=== PATIENT | male | born 1950 | race Caucasian/White ===

== ENCOUNTER 2018-04-28 10:48 | Inpatient (IN) | payer MEDICARE, SELFPAY ==
[2018-04-13 12:55] VITALS: BMI 39.4
[2018-04-28] VITALS (12 sets, daily range): BP systolic 127–141; BP diastolic 66–82; PULSE 75–91; RESP 10–20; TEMP 36.1–36.9; O2SAT 90–98; BMI 39.4
--- NOTE | 2018-04-28 06:00 | DI.RAD.S_ITS ---
PROCEDURE: XR SHOULDER RT 1V INDICATIONS: TOTAL RIGHT SHOULDER POST OPERATIVE TECHNIQUE: A single view of the shoulder was acquired. COMPARISON: [facility], CR, XR SHOULDER MIN 2VW RT, 03/25/2016, 9:17. FINDINGS: Bones: No fractures or dislocations. No suspicious bony lesions. Visualized ribs appear intact. There is expected postsurgical change after right total shoulder arthroplasty with surgical drain overlying the Soft tissues: No suspicious soft tissue calcifications. IMPRESSION: Normal alignment after right total shoulder arthroplasty. Dictated by: Abdirahman Atwood M.D. on 04/28/2018 at 15:09 Approved by: Abdirahman Atwood M.D. on 04/28/2018 at 15:09
[2018-04-28] MEDS: LACTATED RINGERS 1,000 ML 42 ML IV ×2 (11:15→13:34)
--- NOTE | 2018-04-28 11:20 | PM.PREOP ---
Pre-operative Note Interval Note Pre-op Check: Yes History & Physical Reviewed by Physician and Yes Exam Performed Changes: No
[2018-04-28] MEDS: CELECOXIB 200 MG CAPSULE PO (11:25)
[2018-04-28] MEDS: PREGABALIN 75 MG CAPSULE PO (11:25)
[2018-04-28] MEDS: ACETAMINOPHEN 325 MG TABLET 975 MG PO ×3 (11:25→21:48)
[2018-04-28] MEDS: fentaNYL 100 MCG/2 ML INJ 50 MCG IV (11:59)
[2018-04-28] MEDS: MIDAZOLAM 2 MG/2 ML VIAL IV (11:59)
[2018-04-28] MEDS: CEFAZOLIN VIAL 3 GM in SODIUM CHLORIDE 0.9% 100 ML 200 ML IV (12:15)
--- NOTE | 2018-04-28 12:20 | PM.OP.1 ---
Operative Date/Time/Diagnoses Date of procedure: 04/28/18 Time of procedure: 14:15 Pre-op diagnosis: Right shoulder osteoarthritis Post-op diagnosis: same Procedure & Clinicians Procedure: Right total shoulder replacement Same procedure as scheduled: Yes Indications: The patient has had progressively worsening right shoulder pain with radiographic changes consistent with arthritis. Non-operative management has failed and the patient has requested total shoulder replacement. The risks, benefits and alternatives to surgery were discussed with the patient prior to proceeding. Risks discussed included, but were not limited to, failure to relieve pain, stiffness, infection, nerve damage, deep venous thrombosis, pulmonary embolism, stroke, coma, heart attack, permanent paralysis and , as well as the potential need for eventual revision of the prosthetic. Surgeon: Han Urena Jackscrew Worker: Valerie Quinn Click Yes if Unassisted: No Anesthesia Type: General, Peripheral nerve block and Local Operative Notes Findings: Severe osteoarthritis with very large inferior osteophyte on the humerus. There was concentric wear on the glenoid. Closure Type: primary Specimen(s): none sent Implants & Drains: Implants used during this procedure were manufactured by the [employer] and included a short stem Altivate anatomic total shoulder system with a size 14 mm humeral stem, 50 x 18 mm offset humeral head with a neutral humeral neck and a 50 mm all polyethylene pegged E +glenoid. Applied: drain(s) and implant(s) Blood products transfused: none Procedure in detail: The patient was seen in the pre-operative area, where the patient identified the right shoulder as the operative site and this was marked with my initials. The patient received pre-operative antibiotics, underwent an interscalene block, and was taken to the operating room and placed on the operative table in the supine position. After satisfactory anesthesia, a full ?time out? was performed. The patient was repositioned in the ?beach chair? position using a dedicated positioner. All pressure points were well padded, and the knees were slightly bent to prevent tension on the sciatic nerves. The right arm was prepared from the fingers to the base of the neck with ChloroPrep in the usual fashion and draped through sterile drapes. An approximately 15 cm incision was created, starting at the clavicle above the coracoid process and extended towards the deltoid insertion. The deltopectoral interval was used to access the shoulder. The cephalic vein was injured and cauterized. A self retaining retractor was placed. The upper centimeter of the pectoralis major tendon was released. The ?three sisters? were identified and cauterized. The axillary nerve was palpated and protected throughout the case. The biceps was released from its groove and tenodesed over the top of the pectoralis major tendon. The subscapularis was released from the lesser tuberosity with a subscapularis peel and tagged for later repair. The shoulder was dislocated and a cutting guide was used for the proximal humeral osteotomy in 30 degrees of retroversion. A starter reamer was used followed by the cylindrical reamers. This continued in larger sizes in till cortical bite was achieved. Sequential broaching was then performed until a line to line fit with the reamer occurred. A proximal humeral protector was then placed. We then removed the self-retaining retractor and placed retractors to access the glenoid. The subscapularis was released with a ?360 degree release? with care being taken to protect the axillary nerve with the inferior portion of this procedure. The remnant of labrum and biceps stump were removed. The appropriate size reamer was chosen with the glenoid sizer, and the guide pin placed. The glenoid was appropriately reamed. The guide for the peripheral holes was used and the center hole enlarged. The trial glenoid was placed with good stability. We then cemented the final implant into place after irrigating the peg holes and drying them with thrombin-soaked Gelfoam. We returned our attention to the humerus, a trial humeral head was applied and a trial reduction performed. Stability was checked with 50% posterior translation with spontaneous reduction, 45? external rotation at the side with the subscapularis in the repaired position and 70? of internal rotation in the ?scare ?O? position. This was felt to be satisfactory and the appropriate implants were opened. Five holes were drilled along the humeral osteotomy and #2 TiCron sutures placed for eventual subscapularis repair. The humeral prosthetic was impacted into the humerus. The humeral head was applied when the stem was still slightly proud and impacted to both seat the head and fully seat the stem. The joint was relocated one final time. The joint was irrigated and the subscapularis repaired to the previously placed sutures using Porfirio-Bob sutures. The top of the subscapularis was closed to the leading edge of the supraspinatus with a figure of 8 #2 TiCron to close the rotator interval. A deep drain was placed and brought out supero-laterally. The deltopectoral interval was closed with interrupted 0 Vicryl. The subcutaneous layer was closed with 3-0 Vicryl, and the skin with a running 3-0 V-Lock suture and SteriStrips. An Aquacel Ag dressing was applied, the patient?s arm was placed in a sling, and the patient was taken to recovery having tolerated the procedure well. Complications: none Condition: stable Disposition: PACU Plan for aftercare: The patient will be maintained on a standard total shoulder replacement protocol with passive range of motion limited to 90 degrees forward flexion, 0 degrees external rotation at the side, 0 degrees abduction and internal rotation to the body. The patient will receive aspirin and sequential compression devices for DVT prophylaxis. The patient will be discharged home when safe for the home environment, likely tomorrow.
[2018-04-28] MEDS: THROMBIN (BOVINE) 5,000 UNIT VIAL 5000 UNIT TOP (12:56)
[2018-04-28] MEDS: BUPIVACAINE 0.5% W/ EPI (PF) VIAL 30 ML INJ (12:56)
[2018-04-28] MEDS: TRANEXAMIC ACID 1,000 MG VIAL 1000 MG INJ ×2 (12:56→14:07)
--- NOTE | 2018-04-28 13:00 | SUR.OPER ---
Beach chair with Andrew/Calvin shoulder positioner. Lower body on padded OR bed. Head in foam padded head cradle, secured with straps. Non-operative arm secured <90 degrees abduction. Pillow under knees. Safety belt at thigh. Cloth tape over blanket over lower legs.
[2018-04-28] MEDS: LACTATED RINGERS 1,000 ML 125 ML IV (16:29)
--- NOTE | 2018-04-28 17:41 | PT.IIE ---
Current Diagnoses Primary osteoarthritis, right shoulder (04/28/18) Surgery Performed Operation Date: 04/28/18 12:45 Actual Procedures p Total Shoulder Arthroplasty(Right) - Han Urena MD Surgical History (Last Updated 04/13/18 @ 13:39 by Cassandra Pires, RN) H/O vasectomy (Acute) History of arthroplasty of right knee (Acute) History of arthroscopy of both knees (Acute) Medical History (Last Updated 04/13/18 @ 13:39 by Cassandra Pires RN) Bilateral pulmonary embolism (Acute) HTN (hypertension) (Acute) Hyperlipidemia (Acute) Pneumonia (Acute) Psoriasis (Acute) Physical Therapy Inpatient Evaluation/Re-Eval M1 PT/OT-IP Prior Functional Status Start: 04/28/18 17:17 Freq: NEEDED Status: Active Protocol: Document 04/28/18 17:17 EA (Rec: 04/28/18 17:39 EA [id number]) Medical Review Prior Functional Status Medical History Reviewed Yes Diet/Fluid Consistency Regular Communication Normal Mobility and Gait Can ambulate with unlimited distance with no AD independently. No fall in the past six months Activities of Daily Living and IADL's Indep Prior Functional Level (Other details) Independent Social History Household Members significant other Living Arrangements House Number of Floors (Floors) Two Floors Number of Stairs To Enter/Railing? 4 steps to get in to the main floor and > 10 steps to get in to the second floor. Patient will stay on the main floor using the recliner. Home Environment Standard Height Toilet Home Equipment Straight Cane Additional Social History Comment Walks regularly M2 PT-IP Current Condition Start: 04/28/18 17:17 Freq: NEEDED Status: Active Protocol: Document 04/28/18 17:17 EA (Rec: 04/28/18 17:39 EA [id number]) Physical Therapy Current Condition Current Condition Evaluation Date 04/28/18 Treatment Diagnosis s/p right TSA Onset Date 04/28/18 Precautions Abdominal Surgery Precautions Lifting Restrictions Shoulder Precautions Sling PROM Internal Rotation to Body No External Rotation No Abduction Forward Flexion to 90 degrees Pendulums Other Precautions No sleeping toward right shoulder M3 PT-IP Subjective Start: 04/28/18 17:17 Freq: NEEDED Status: Active Protocol: Document 04/28/18 17:17 EA (Rec: 10/16/18 17:39 EA [id number]) Subjective Physical Therapy Visit Type Type Initial Evaluation Visit Start Time 16:45 Visit Stop Time 17:15 Total Visit Minutes 30 Physical Therapy Visit Comments Patient Comments Patient agreeable to mobilize and ue the BR. Patient Goals Patient wants to be indep in all transfers and mobility prior to discharge. Pt wants to be indep climbing to 4 steps of stair using right hand rail for support prior Therapy Pain Assessment Pain When Pain Assessed At Rest Pain Present Pain Present Denied Pain M4 PT-IP Mobility and Gait Start: 04/28/18 17:17 Freq: NEEDED Status: Active Protocol: Document 04/28/18 17:17 EA (Rec: 04/28/18 17:39 EA [id number]) PT-Bed Mobility Assessment Rolling Type of Rolling Roll to Left Level of Assist Standby Assistance Supine to Sit Supine to Sit Standby Assistance Sit to Supine Sit to Supine Standby Assistance Scooting Scooting to Edge of Bed Standby Assistance Scooting Up and Down in Bed Standby Assistance PT-Transfer Assessment Sit to and From Stand Sit to and from Stand Standby Assistance Equipment Transfer Assistive Device Bed Rail Gait Belt Transfers Transfer Destination Bed Toilet Transfer Technique stepping Transfer Ability Level of Assist Contact Guard Assistance Comments Mobility Comments No signs of instability noted but patient frequent rest due to dizziness. Pt uses IV pole to left hand for support. Gait Assessment Gait Gait Assistance Required: Contact Guard Assist Distance (Feet) 20 Able to Maintain Weight Bearing Status Yes During Gait Assistive Devices Assistive Device Gait Belt Gait Deviations General Gait Pattern Within Normal Limits Comments Gait Comments Patient ambulates with IV pole to left w/ normal rafael, however decreased distance tolerance due to dizziness and general body fatigue PT-Balance Assessment Sitting Balance and Reactions Static Sitting Balance Ability Normal Standing Balance and Reactions Static Standing Balance Ability Normal Dynamic Standing Balance Ability Good M5 PT-IP Objective Assessments Start: 04/28/18 17:17 Freq: NEEDED Status: Active Protocol: Document 04/28/18 17:17 EA (Rec: 04/28/18 17:39 EA [id number]) Orientation Orientation/Cognition Level of Alertness Alert Orientation Name Month Date Year Day of Week Place Situation Language Function Ability No Deficits Noted Safety Awareness Understands Safety Issues Memory Description No Deficits Noted Gross Range of Motion Upper Extremity ROM Assessment Right Impaired Impairments N/A due to shoulder pre- cautions Lower Extremity ROM Assessment Within Functional Limits Strength Upper Extremity Strength Assessment Right Impaired Shoulder N/A due to shoulder pre- cautions Elbow 2/5 Wrist 2/5 Hand 2-/5 Lower Extremity Strength Assessment Within Functional Limits Comments Strength Comments Strength to right UE maybe due to nerve block which appropriately evaluated after few more hours. Coordination Assessment Gross Coordination Gross Coordination Impaired Assessment Coordination Comments Impaired sensory to right UE Sensation Assessment Sensation Gross Sensation Right UE Impaired Sensation Description Paresthesia Numbness Pins & [place] Heaviness Comments Sensation Comments Sensory to RU is incomplete at this time. M6 PT-IP Treatment Start: 04/28/18 17:17 Freq: NEEDED Status: Active Protocol: Document 04/28/18 17:17 EA (Rec: 04/28/18 17:39 EA [id number]) Physical Therapy Treatment Education Education Provided Precautions Post-Op Packet Safety M7 PT-IP Assessment and Plan Start: 04/28/18 17:17 Freq: NEEDED Status: Active Protocol: Document 04/28/18 17:17 EA (Rec: 04/28/18 17:39 EA [id number]) PT Summary Assessment and Plan Potential Rehabilitation Potential Good Status of Condition at Evaluation Stable Summary Impairments Pain ROM Strength Bed Mobility Transfers Gait Activity Tolerance Assessment Summary Patient exhibits good dynamic standing tolerance and strength to LUE and BLE. However, decreased activity tolerance noted with slight dizziness with stable VS during functional transfers and mobility. Patient would benefit with skilled PT to practice stairs and distance amb prior to discharge tomorrow. Patient demonstrates high rehab potential. Goals Bed Mobility Goal Independent Transfer Goal Independent Gait Goal Independent Gait Distance 100 ft Other Goals Independent in 4 steps of stairs using right HR. Proficient to shoulder HEP ( pendulum) Days to Meet Goals 1 Frequency of Treatment Frequency Of Treatment Once a Day Treatment Plan Physical Therapy Treatment Plan Bed Mobility Training Transfer Training Gait Training Post Op Education Discharge Planning Hot or Cold Pack Recommendations To Nursing Amount of Assist Needed 1 Person Assist
--- NOTE | 2018-04-28 21:33 | PC.ADMIT ---
Admission Note: Pt arrived to floor at 1500. Pt in room. pt given call light. water and ice chips and tolerated well. then wanted coffee. Ate cheese stick. given meds. ate dinner. no N/V Pt able to wiggle pointer finger a bit and thumb, but cannot feel at this time. denies pain. oriented to room and hospital procedures. 1700- Pt still very numb. still able to wiggle fingers just a bit, but barely. Pt has arm in sling. propped on pillow for comfort. on RA. Pt saw pt and pt did well walking. can use IV pole to help with ambulation. 1900- Pt states his arm feels tingling. Pt states that he can feel pressure, and cold from ice pack, but not delineate sharp from dull touch. Pt uses call light. pleasant and cooperative. bed alarm on, side rail upx3. belongings and call light within reach pt states he may want to refuse SCDs for the night time as he doesn't believe he will be able to sleep otherwise.
[2018-04-28] MEDS: DOCUSATE 100 MG CAPSULE PO (21:48)
[2018-04-28] MEDS: ASPIRIN EC 81 MG TABLET PO (21:49)
[2018-04-28] MEDS: CEFAZOLIN 2 GM/100 ML FROZ.PIGGY IV (21:51)
[2018-04-29 00:29] VITALS: BP 139/78; PULSE 89; RESP 20; TEMP 36.8; O2SAT 92
[2018-04-29] MEDS: LACTATED RINGERS 1,000 ML 125 ML IV (02:00)
[2018-04-29 04:44] VITALS: BP 138/73; PULSE 73; RESP 18; TEMP 36.6; O2SAT 94
[2018-04-29] MEDS: CEFAZOLIN 2 GM/100 ML FROZ.PIGGY IV (05:43)
[2018-04-29 07:27] LABS: Hematocrit 39.1 % (41-53); Hemoglobin 13.2 g/dL (13.5-17.5); Mean Corpuscular HGB Conc 33.8 % (30-36); Mean Corpuscular Hemoglobin 30.9 PG (26-34); Mean Corpuscular Volume 91.5 fL (80-100); Platelet Count 250 X10^3/uL (150-400); Red Blood Cell Count 4.27 X10^6/uL (4.5-5.9); Red Cell Distribution Width 13.7 % (11.6-14.8); White Blood Cell Count 12.7 X10^3/uL (4.5-11.0)
[2018-04-29 07:40] VITALS: BP 143/81; PULSE 82; RESP 16; TEMP 36.6; O2SAT 93
--- NOTE | 2018-04-29 07:53 | P.DS_ITS ---
History of Present Illness Date Patient Seen: 04/29/18 Time Patient Seen: 07:35 Chief complaint: 23356 RIGHT TOTAL SHOULDER ARTHROPLASTY Narrative: History and physical exam are contained in the chart previously completed note. Please refer to that note for this information. Discharge Providers Date of admission: 04/28/18 10:48 Primary care physician: Alex Bedolla MD Consults: 04/28/18 15:57 Consult to Discharge Planning Routine Comment: Consult to Occupational Therapy Evaluate & Treat Comment: Physician Instructions: Evaluate and treat Consult to Physical Therapy Evaluate & Treat Comment: Pendulums, 90 FF, 0 ER, 0 Abd, IR to body Physician Instructions: Evaluate and Treat Consult to Respiratory Therapy Evaluate & Treat Comment: Physician Instructions: Evaluate and treat Discharge provider: Han Urena MD Discharge Date: 04/29/18 Summary Discharge Diagnosis: 1. Right shoulder osteoarthritis Hospital Course: The patient was admitted to the hospital and taken directly to the operating room on April 28, 2018 where he underwent a right total shoulder replacement. He tolerated this procedure well and was pain free on postoperative day 1 although his interscalene block had not fully resolved. He was felt to be stable for discharge home on postoperative day 1. Status at Discharge Cognitive/behavioral status at discharge: At baseline. Functional status at discharge: independent ambulation Overall status at discharge: patient is progressing back to baseline Time Spent with Patient Less than 30 minutes Exam Vital Signs (past 8 hours): - 04/29/18 00:29 04/29/18 04:44 Temperature 98.3 F 97.8 F Pulse Rate 89 73 Respiratory Rate 20 18 Blood Pressure 139/78 138/73 Pulse Oximetry 92 94 Oxygen Delivery Method Nasal Cannula Oxygen Flow Rate 1 Narrative Exam Narrative: On physical examination of the right shoulder the wound is dressed with no drainage on the bandage. Light touch is intact in the axillary , muscular cutaneous, radial, ulnar and median nerve distributions. He can only weakly extend his thumb and abduct his thumb indicating that the motor portion of his block is still in place. Objective Labs Result Diagrams: 04/29/18 06:47 Labs: Laboratory Results - last 24 hr 04/29/18 06:47 WBC 12.7 H RBC 4.27 L Hgb 13.2 L Hct 39.1 L MCV 91.5 MCH 30.9 MCHC 33.8 RDW 13.7 Plt Count 250 Radiographs reveal an appropriately positioned right short stem total shoulder replacement. Discharge Plan Discharge Plan Patient Disposition: Home Discharge Med Rec/Prescriptions Prescriptions: New acetaminophen 325 mg Tablet 975 mg PO TID 14 Days Qty: 126 RF: 0 aspirin 81 mg Tablet,Delayed Release (Dr/Ec) 81 mg PO BID 14 Days Qty: 28 RF: 0 oxycodone 5 mg Tablet 5 mg PO Q3HR PRN (Reason: Pain, Moderate (4-6)) Qty: 40 RF: 0 Continue atorvastatin [Lipitor] 10 MG tablet 10 mg PO QAM Qty: 0 RF: 0 multivitamin [Multiple Vitamins] 1 EACH tablet 1 tab PO QDAY Qty: 0 RF: 0 cholecalciferol (vitamin D3) [Vitamin D3] 1,000 UNIT tablet 1,000 unit PO QDAY Qty: 0 RF: 0 losartan-hydrochlorothiazide 100-12.5 mg Tablet 1 tab PO DAILY RF: 0 Discontinued aspirin 81 MG tablet,delayed release (DR/EC) 81 mg PO DAILY RF: 0 Provider Discharge Instructions Diet: Diet as Tolerated and Regular Activity: You may use your hand in front of your torso below shoulder level. Continue the sling until told to discontinue in physical therapy. You may do pendulum exercises. Cold/Heat Therapy: Apply ice to the right shoulder for 15 min every hour as needed. Skin/Wound/Dressing Care Report to your healthcare provider any signs of infection, such as:: chills, fever, night sweats, increased pain and unusual drainage Dressing: Leave the dressing intact until follow-up. You may shower with the dressing in place. If the central strip of the dressing becomes saturated with either water or blood please call the office to arrange to have it changed. Discharge Data Primary Care Provider: Alex Bedolla Attending Provider: Han Urena Admit Date/Time: 04/28/18 10:48
[2018-04-29] MEDS: ACETAMINOPHEN 325 MG TABLET 975 MG PO (08:19)
[2018-04-29] MEDS: hydroCHLOROthiazide 12.5 MG CAPSULE PO (08:20)
[2018-04-29] MEDS: DOCUSATE 100 MG CAPSULE PO (08:20)
[2018-04-29] MEDS: ASPIRIN EC 81 MG TABLET PO (08:20)
[2018-04-29] MEDS: LOSARTAN 50 MG TABLET 100 MG PO (08:21)
--- NOTE | 2018-04-29 09:30 | PT.IPTN ---
Current Diagnoses Primary osteoarthritis, right shoulder (04/28/18) Surgery Performed Operation Date: 04/28/18 12:45 Actual Procedures p Total Shoulder Arthroplasty(Right) - Han Urena MD Physical Therapy Treatment Note M2 PT-IP Current Condition Start: 04/28/18 17:17 Freq: NEEDED Status: Active Protocol: Document 04/28/18 17:17 EA (Rec: 04/28/18 17:39 EA [id number]) Physical Therapy Current Condition Current Condition Evaluation Date 04/28/18 Treatment Diagnosis s/p right TSA Onset Date 04/28/18 Precautions Abdominal Surgery Precautions Lifting Restrictions Shoulder Precautions Sling PROM Internal Rotation to Body No External Rotation No Abduction Forward Flexion to 90 degrees Pendulums Other Precautions No sleeping toward right shoulder M3 PT-IP Subjective Start: 04/28/18 17:17 Freq: NEEDED Status: Active Protocol: Document 04/29/18 09:30 GGD (Rec: 04/29/18 10:55 GGD [id number]) Subjective Physical Therapy Visit Type Type Treatment Note Visit Start Time 09:10 Visit Stop Time 09:30 Total Visit Minutes 20 Number of VACUUM KETTLE COOK Visits 1 Physical Therapy Visit Comments Patient Comments Pt states he hopes to go home. Therapy Pain Assessment Pain When Pain Assessed At Rest Pain Present Pain Present Denied Pain M4 PT-IP Mobility and Gait Start: 04/28/18 17:17 Freq: NEEDED Status: Active Protocol: Document 04/29/18 09:30 GGD (Rec: 04/29/18 10:55 GGD [id number]) PT-Bed Mobility Assessment Supine to Sit Supine to Sit Standby Assistance Sit to Supine Sit to Supine Standby Assistance Scooting Scooting to Edge of Bed Standby Assistance Scooting Up and Down in Bed Standby Assistance PT-Transfer Assessment Sit to and From Stand Sit to and from Stand Standby Assistance Equipment Transfer Assistive Device Gait Belt Transfers Transfer Destination Bed Transfer Technique stepping Transfer Ability Level of Assist Contact Guard Assistance Gait Assessment Gait Gait Assistance Required: Standby Assistance Distance (Feet) 125 Able to Maintain Weight Bearing Status Yes During Gait Assistive Devices Assistive Device Gait Belt Orthotic/Prosthetic Devices or Brace: No Gait Deviations General Gait Pattern Within Normal Limits Stair Climbing Assessment Evaluation Level of Assist On Stairs Contact Guard Assistance Devices Stair Climbing Assistive Devices None Left Railing Right Railing Technique/Endurance Stair Climbing Direction Ascend and Descend Stair Climbing Technique Step to Step Number of Steps Climbed 3 Query Text: Stair Climbing Set # Repetitions (reps) 2 Comments Stair Climbing Comments one set of stairs with left rail to asscend and right rail to descend. one set with wall touch to ascend and right rail to descend M5 PT-IP Objective Assessments Start: 04/28/18 17:17 Freq: NEEDED Status: Active Protocol: Document 04/28/18 17:17 EA (Rec: 04/28/18 17:39 EA [id number]) Orientation Orientation/Cognition Level of Alertness Alert Orientation Name Month Date Year Day of Week Place Situation Language Function Ability No Deficits Noted Safety Awareness Understands Safety Issues Memory Description No Deficits Noted Gross Range of Motion Upper Extremity ROM Assessment Right Impaired Impairments N/A due to shoulder pre- cautions Lower Extremity ROM Assessment Within Functional Limits Strength Upper Extremity Strength Assessment Right Impaired Shoulder N/A due to shoulder pre- cautions Elbow 2/5 Wrist 2/5 Hand 2-/5 Lower Extremity Strength Assessment Within Functional Limits Comments Strength Comments Strength to right UE maybe due to nerve block which appropriately evaluated after few more hours. Coordination Assessment Gross Coordination Gross Coordination Impaired Assessment Coordination Comments Impaired sensory to right UE Sensation Assessment Sensation Gross Sensation Right UE Impaired Sensation Description Paresthesia Numbness [place] Heaviness Comments Sensation Comments Sensory to RU is incomplete at this time. M6 PT-IP Treatment Start: 04/28/18 17:17 Freq: NEEDED Status: Active Protocol: Document 04/28/18 17:17 EA (Rec: 04/28/18 17:39 EA [id number]) Physical Therapy Treatment Education Education Provided Precautions Post-Op Packet Safety M7 PT-IP Assessment and Plan Start: 04/28/18 17:17 Freq: NEEDED Status: Active Protocol: Document 04/29/18 09:30 GGD (Rec: 04/29/18 10:55 GGD [id number]) PT Summary Assessment and Plan Summary Assessment Summary Pt was safe and stable with all mobility. He had no unsteadiness or LOB. He was safe with stairs and gait. He safe to D/C home when medically stable. Frequency of Treatment Frequency Of Treatment Once a Day Recommendations To Nursing Amount of Assist Needed Standby Assistance
--- NOTE | 2018-04-29 10:14 | OT.IP.EVAL ---
Current Diagnoses Primary osteoarthritis, right shoulder (04/28/18) Surgery Performed Operation Date: 04/28/18 12:45 Actual Procedures p Total Shoulder Arthroplasty(Right) - Han Urena MD Past Medical History (Last Updated 04/13/18 @ 13:39 by Cassandra Pires, RN) Bilateral pulmonary embolism (Acute) HTN (hypertension) (Acute) Hyperlipidemia (Acute) Pneumonia (Acute) Psoriasis (Acute) Surgical History (Last Updated 04/13/18 @ 13:39 by Cassandra Pires RN) H/O vasectomy (Acute) History of arthroplasty of right knee (Acute) History of arthroscopy of both knees (Acute) Occupational Therapy Inpatient Evaluation/Re-Eval M1 PT/OT-IP Prior Functional Status Start: 04/29/18 12:57 Freq: NEEDED Status: Active Protocol: Document 04/29/18 10:14 PJGunnar (Rec: 04/29/18 13:13 PJM [id number]) Medical Review Prior Functional Status Medical History Reviewed Yes Diet/Fluid Consistency Regular Communication Normal Mobility and Gait Can ambulate with unlimited distance with no AD independently. No fall in the past six months Activities of Daily Living and IADL's Indep with all self care, IADLs, driving. 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 He travels frequently for work and is active walking in [place]. His S.O. 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 Social History Household Members significant other Living Arrangements House Number of Floors (Floors) Two Floors Number of Stairs To Enter/Railing? 4 steps to get in to the main floor with B rails and > 10 steps to get in to the second floor. There is a right rail half way when ascending and L rail for all stairs ascending. Patient will stay on the main floor using the recliner. Home Environment Standard Height Toilet Walk in Shower Home Equipment Straight Cane Employment Status Self-Employed Additional Social History Comment supportive can provide 24 hr assist at d d/c PRN M2 OT-IP Current Condition Start: 04/29/18 12:57 Freq: Status: Active Protocol: Document 04/29/18 10:14 PJGunnar (Rec: 04/29/18 13:13 MARIAA [id number]) Occupational Therapy Current Condition Current Condition Evaluation Date 10/17/18 Treatment Diagnosis decreased self care s/p R TSA Post Operative Precautions Abdominal Surgery Precautions Lifting Restrictions Shoulder Precautions Sling PROM Internal Rotation to Body No External Rotation No Abduction Forward Flexion to 90 degrees Pendulums Other Precautions NWB RUE Weight Bearing Status Weight Bearing Status Non-Weight Bearing M3 OT- IP Subjective and Pain Start: 04/29/18 12:57 Freq: Status: Active Protocol: Document 04/29/18 10:14 PJM (Rec: 04/29/18 13:13 PJ [id number]) OT- Subjective Occupational Therapy Visit Type Type Initial Evaluation Visit Start Time 09:25 Visit Stop Time 10:14 Total Visit Minutes 49 Notes Pt's s.o. here for education this session. 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 with travel when MD permits OT Pain Assessment Pain When Pain Assessed After Treatment Pain Present Pain Present Pain Reported Location Right Shoulder Intensity 2 Scale Used Numeric (1 - 10) Description Aching Acute Pain Behaviors Facial Grimacing Management Techniques Apply Cold Distraction Re-positioning Timing of Activity with Medications M4 OT- IP ADL's Start: 04/29/18 12:57 Freq: Status: Active Protocol: Document 04/29/18 10:14 PJM (Rec: 04/29/18 13:13 PJ [id number]) OT XPR-Lict-Jbrdhtv General Evaluation Self-Feeding Ability Independent Comments OT Self-Feeding Comments after meal tray set up; will assist PRN at home OT ADL-Grooming General Evaluation Grooming Ability Independent Comments OT Grooming Comments after education re: unilateral techniques and use of R hand within sling for holding light objects OT ADL-Oral Care General Eval Oral Care Ability Independent OT ADL-Dressing General Eval Upper Body Dressing Ability Moderate Assistance Areas Needing Assistance Button-Up Shirt/Blouse Underpants/Brief Pants/Shorts Socks Shoes Comments OT Dressing Comments Provided education re: sequence, technique and shoulder precautions for dressing and sling donning/ doffing. able to assist pt appropriately. OT ADL-Toileting General Evaluation Toileting Ability Independent Comments OT Toileting Comments pt declines need for toilet paper aid; has been practicing with L hand OT ADL-Bathing Bathing Type Bathing Type Shower General Evaluation Bathing Ability Minimal Assistance Comments OT Bathing Comments educated pt/ re; precautions and will assist pt PRN at home; pt declines shower seat M5 OT- IP IADL's Start: 04/29/18 12:57 Freq: Status: Active Protocol: Document 04/29/18 10:14 PJGunnar (Rec: 04/29/18 13:13 PJ [id number]) OT-Instrumental Activities of Daily Living Deficits IADL Deficits Identified Deficits Home Safety Awareness Awareness of Need for Assistance at Home Good Awareness Ability to Problem Solve Emergency Able to Problem Solve Situations Medication Management Medication Management No Deficits Identified Money Management Money Management No Deficits Identified Meal Preparation Meal Preparation Caregiver Provides Assist Float Nurse Float Nurse Caregiver Provides Assist Driving Driving Caregiver Provides Assist Driving Comments to assist until pt able M6 OT- IP Functional Cognition Start: 04/29/18 12:57 Freq: Status: Active Protocol: Document 04/29/18 10:14 PJGunnar (Rec: 04/29/18 13:13 [facility] [id number]) Cognitive Factors Limiting Selfcare Function Cognitive Ability Level of Alertness Alert Patient Orientation Name Age Birthday Month Date Year Day of Week Place Situation Attention Span Ability Capable of Focused Attention Capable of Sustained Attention Ability to Follow Commands Able to Follow One Step Commands Able to Follow Multi-Step Commands Memory Description No Deficits Noted Safety Awareness No Deficits Noted Problem Solving Ability No deficits Noted Executive Function Ability No Deficits Noted Abstract Thinking Ability No Deficits Noted OT- Vision and Hearing OT- Hearing Assessment OT- Hearing Assessment WFL OT- Vision Assessment Visual Acuity Glasses All The Time Vision Assessment Comments pt denies any recent vision changes M7 OT- IP Mobility and Balance Start: 04/29/18 12:57 Freq: Status: Active Protocol: Document 04/29/18 10:14 MARIAA (Rec: 04/29/18 13:13 [facility] [id number]) OT-Transfer Assessment Sit to and From Stand Sit to and from Stand Independent Transfers Transfer Ability Independent Technique Transfer Destination Bed Chair Transfer Technique Stand Step Pivot Devices Transfer Assistive Devices None Comments Mobility Comments pt up in room ad nicky; he plans to sleep in recliner initially OT- Gait Assessment Gait Gait Assistance Required: Independent Assistive Devices Assistive Device None OT- Balance Assessment Sitting Balance and Reactions Static Sitting Balance Ability Good Dynamic Sitting Balance Ability Good Standing Balance and Reactions Static Standing Balance Ability Good Dynamic Standing Balance Ability Good M8 OT- IP Objective Assessments Start: 04/29/18 12:57 Freq: Status: Active Protocol: Document 04/29/18 10:14 PJ (Rec: 04/29/18 13:13 PJ [id number]) OT Gross Range of Motion Upper Extremity Range of Motion Assessment Right Impaired ROM Impairments RUE; pendulums to 80 degrees; elbow, forearm AROM WFL, wrist , finger AAROM WFL (pt still has motor block in effect in radial nerve distribution) LUE AROM WFL throughout OT Strength Upper Extremity Strength Assessment Right 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 LUE WFL throughout OT- Coordination Assessment Comments Coordination Comments RUE impaired by sling use and radial nerve weakness, LUE WFL OT-Muscle Tone Assessment Muscle Tone WNL Yes OT Sensation Assessment Comments Summary Comments Pt reports RUE sensation now WNL except for slight decrease in dorsum of hand Edema Edema Present Edema Comments slight R hand edema noted M9 OT- IP Assessment and Plan Start: 04/29/18 12:57 Freq: Status: Active Protocol: Document 04/29/18 10:14 PJ (Rec: 04/29/18 13:13 PJ [id number]) OT Summary Assessment and Plan Potential Rehabilitation Potential Excellent Analytic Complexity at Evaluation Low Summary OT Impairments Pain Strength Progress Towards Goals Safe For Discharge Goals Met Assessment Summary Low complexity OT assessment and all OT education completed with pt/ re: R shoulder precautions, sling use, adapted techniques for all self care skills as noted above. Pt/ verbalize and demonstrate understanding and pt to d/c home with 24 hr assist from today. Frequency of Treatment Frequency Of Treatment Discharge Discharge Recommendations OT Discharge Recommendations Home with 24/ Assist Home Equipment Needs none
[2018-04-29] MEDS: OXYCODONE IR 5 MG TABLET PO (10:19)
--- NOTE | 2018-04-29 10:59 | PC.NURSE ---
Discharge Note: Pt dressed, belongings with him with , medications given for pain, discussed D/C meds and schedule, to follow all precautions and to hydrate. Pt out via wheelchair to POV with and RACING DRIVER.
--- NOTE | 2018-04-29 15:50 | CM.IDA ---
No barriers indicated in multi-disciplinary rounds this morning to pt's safe DC home when medically stable. DC home today, no concerns noted. JW
== END 2018-04-29 10:20 | disposition home or self-care (01) | DRG 483 ==
PROVIDERS: Admitting Provider Orthopaedic Surgery; PCP Family Medicine; Visit Provider Orthopaedic Surgery
PROC: 0RQJ0ZZ Repair Right Shoulder Joint, Open Approach (ICD-10-PCS; CPT 23472; principal; 2018-04-28 12:45)
DX: M19.011 Primary osteoarthritis, right shoulder (principal); I10 Essential (primary) hypertension; E66.9 Obesity, unspecified; E78.5 Hyperlipidemia, unspecified; F32.9 Major depressive disorder, single episode, unspecified; Z87.891 Personal history of nicotine dependence; Z68.39 Body mass index [BMI] 39.0-39.9, adult; M25.711 Osteophyte, right shoulder
CPT/HCPCS: 36415; 64415; 73020; 85027; 97116; 97161; 97165; 97530; 97535; C1776; J0330; J0690; J1100; J2250; J2405; J2704; J3010

== ENCOUNTER → 2021-05-31 09:52 | Outpatient (CLI) | payer MEDICARE, SELFPAY ==
[2018-04-28 11:18] VITALS: BMI 39.4
[2021-05-31 11:04] LABS: Add Manual Diff / Slide Review NO; Basophils Absolute Auto 0 /uL (0-100); Basophils Percent Auto 0.4 % (0-2); Eosinophils Absolute Auto 200 /uL (0-450); Eosinophils Percent Auto 2.6 % (2-4); Hematocrit 47.8 % (41-53); Hemoglobin 16.2 g/dL (13.5-17.5); Lymphocytes Absolute Auto 2200 /uL (1100-4500); Lymphocytes Percent Auto 28.6 % (25-40); Mean Corpuscular HGB Conc 33.9 % (30-36); Mean Corpuscular Hemoglobin 31.3 PG (26-34); Mean Corpuscular Volume 92.2 fL (80-100); Monocytes Absolute Auto 800 /uL (0-900); Monocytes Percent Auto 10.2 % (3-14); Neutrophils Absolute Auto 4600 /uL (1500-7000); Neutrophils Percent Auto 58.2 % (50-75); Platelet Count 262 X10^3/uL (150-400); Red Blood Cell Count 5.19 X10^6/uL (4.5-5.9); White Blood Cell Count 7.9 X10^3/uL (4.5-11.0)
[2021-05-31 13:08] LABS: BUN Creatinine Ratio 20.2 (6-22); Blood Urea Nitrogen 18 mg/dL (9-20); Calcium 10.1 mg/dL (8.4-10.2); Carbon Dioxide 26 mmol/L (22-32); Chloride 103 mmol/L (98-107); Estimated Glomerular Filt Rate > 60.0 mL/min (>60); Glucose 70 mg/dL (80-110); HEMOLYSIS 16 (0-50); Potassium 4.4 mmol/L (3.4-5.1); Sodium 140 mmol/L (137-145)
== END ==
PROVIDERS: PCP Family Medicine; Referring Provider Orthopaedic Surgery; Visit Provider Orthopaedic Surgery
DX: Z01.818 Encounter for other preprocedural examination (principal); Z01.812 Encounter for preprocedural laboratory examination
CPT/HCPCS: 36415; 80048; 85025; 93005

== ENCOUNTER → 2021-06-22 11:28 | Outpatient (CLI) | payer MEDICARE, SELFPAY ==
[2018-04-28 11:18] VITALS: BMI 39.4
[2021-06-22 12:41] LABS: COVID19 -Nasal RAPID Negative (Negative)
== END ==
PROVIDERS: PCP Family Medicine; Visit Provider Physician Assistant
DX: Z20.822 Contact with and (suspected) exposure to COVID-19 (principal)
CPT/HCPCS: 87635; C9803

== ENCOUNTER 2021-06-25 12:39 | Day surgery (SDC) | payer MEDICARE, SELFPAY ==
[2018-04-28 11:18] VITALS: BMI 39.4
[2021-06-18 13:54] VITALS: BMI 38.5
[2021-06-25] VITALS (12 sets, daily range): BP systolic 122–156; BP diastolic 43–78; PULSE 64–89; RESP 10–16; TEMP 36.3–36.7; O2SAT 92–97; BMI 38.5
--- NOTE | 2021-06-25 06:44 | DI.RAD.S_ITS ---
PROCEDURE: XR KNEE LT 1TO2V INDICATIONS: postop prosthesis placement TECHNIQUE: 2 view(s) of the knee acquired. COMPARISON: [facility], [place], XR KNEE ARTHRITIC SERIES BI, 05/01/2021, 9:24. [facility], [place], KNEE 1-2 VIEWS RIGHT, 07/01/2017, 17:12. FINDINGS: Bones: Patient is status post left knee joint arthroplasty. Hardware components are in expected positions. Visualized bony structures are intact. Soft tissues: Overlying postoperative changes are noted. IMPRESSION: Expected appearance of the left total knee arthroplasty. Dictated by: Gopal Escalera M.D. on 06/26/2021 at 8:14 Approved by: Gopal Escalera M.D. on 06/26/2021 at 8:15
[2021-06-25] MEDS: ACETAMINOPHEN 325 MG TABLET 975 MG PO (14:36)
[2021-06-25] MEDS: PREGABALIN 75 MG CAPSULE PO (14:37)
[2021-06-25] MEDS: CELECOXIB 200 MG CAPSULE PO (14:40)
[2021-06-25] MEDS: LACTATED RINGERS 1,000 ML 42 ML IV ×2 (14:41→17:04)
--- NOTE | 2021-06-25 15:36 | PM.PREOP ---
Pre-operative Note COVID-19 COVID-19 status: Negative Result date/Date tested (Pos, Neg/Pending): 06/22/21 Interval Note History & Physical reviewed/Exam performed by Physician: Yes Changes to H&P: No
--- NOTE | 2021-06-25 15:38 | P.OP_ITS ---
Operative Date/Time/Diagnoses Date of procedure: 06/25/21 Time of procedure: 17:19 Pre-op diagnosis: Left knee osteoarthritis Post-op diagnosis: same Procedure & Clinicians Procedure: Left total knee Same procedure as scheduled: Yes Indications: The patient has had progressively worsening left knee pain with radiographic changes consistent with arthritis. Non-operative management has failed and the patient has requested total knee replacement. The risks, benefits and alternatives to surgery were discussed with the patient prior to proceeding. Risks discussed included, but were not limited to, failure to relieve pain, stiffness, infection, nerve damage, deep venous thrombosis, pulmonary embolism, stroke, coma, heart attack, permanent paralysis and , as well as the potential need for eventual revision of the prosthetic. Surgeon: Han Urena Gill Net Stringer: Branden Em Click Yes if Unassisted: No Anesthesia Type: General, Spinal and Local Operative Notes Findings: Severe medial and moderately severe patellofemoral osteoarthritis with relative preservation of the lateral compartment Closure Type: primary Specimen(s): none sent Prosthetic devices, grafts, tissues, transplants, or devices: Implants used in this procedure were manufactured by the [email or web address] and [email or web address] and included the BCS II Journey total knee replacement with a size 7 left cobalt chromium femoral component, a size 6 left non porous tibial base plate, a 9 mm cross-linked polyethylene tibial insert and a 35 mm oval Lalita II patella. Applied: implant(s) Estimated Blood Loss (mL): 50 Blood products transfused: none Tourniquet time (min): 46 Procedure in detail: The patient was seen in the pre-operative area, where the left knee was identified as the operative site and this was marked with my initials. The patient received pre-operative antibiotics, and was taken to the operating room and placed on the operative table in the supine position. After satisfactory anesthesia, a business analyst ecommerce out was performed. The left leg was encircled with a tourniquet about the proximal thigh, and the leg was prepared from the toes to the tourniquet with ChloroPrep in the usual fashion and draped through sterile drapes. The leg was elevated and exsanguinated with Eschmark bandage and the tourniquet inflated to 250 mmHg pressure. The knee was approached through an approximately 18 cm incision centered over the patella and carried into the knee through a medial parapatellar arthrotomy. The anterior osteophytes and soft tissues were removed. The rotational landmarks of Bartholomew's line and the transepicondylar axis were marked on the femur with electrocautery, and intramedullary guide holes for the femur and tibia were created. The distal femoral cut was made in 6 degrees of valgus using the intramedullary guide at the primary cut setting. The proximal tibial cut was then made using the intramedullary guide, taking 9 mm of bone off the less involved side. The extension gap was checked and the rotation of the femoral component confirmed with the gap balancing blocks. The anterior, posterior and chamfer cuts were then made. The posterior osteophytes and soft tissues were then removed. The posterior capsule was injected with part of a mixture of 60 ml 0.25% Marcaine mixed with 20 ml Exparel and 4 mg of morphine for post-operative pain control. The remainder of this mixture was injected into the capsule and subcutaneous tissues during cement curing. The tibia was prepared with the rotation set by an extra medullary guide. Trial tibial and femoral components were then placed and the intercondylar notch cut through the femoral trial. Range of motion was 0-135 degrees, with good stability throughout the range. The patella was then cut to accommodate the patellar prosthetic. There was a slight tendency for lateral subluxation of the patella so a lateral release was performed from the superior pole of the patella down to the upper 3rd of the patellar tendon laterally from the outside in using a Bovie electrocautery. The trials were then removed, and the femoral hole plugged with a bone plug. The bone was prepared with pulsatile lavage, and dried with a sponge. Cement was applied and the final prosthetics placed. Excess cement was removed during and after cement curing. After confirming there was no extruded cement posteriorly, the final tibial insert was placed. The knee was copiously irrigated and the tourniquet deflated. Hemostasis was obtained. The capsule was closed with interrupted # 2 polyester sutures. The subcutaneous layer was closed with 3-0 Vicryl, and the skin with a running 3-0 V-Lock suture and Dermabond. An Aquacel Ag dressing was applied and the patient was taken to recovery having tolerated the procedure well. Complications: none Post-operative Condition: stable Disposition: PACU Plan for aftercare: The patient will be maintained on a standard total knee replacement protocol with weight bearing as tolerated. The patient will receive aspirin and sequential compression devices for DVT prophylaxis. The patient will be discharged home when safe for the home environment.
--- NOTE | 2021-06-25 15:38 | PM.PROC.1 ---
Procedures Date/Time Date of procedure: 06/25/21 Time of procedure: 15:30 Nerve Block Time out performed: Yes Local anesthetic used: bupivacaine 0.25% Location of anesthetic used: LEFT Amount of anesthesia used (mL): 20 Nerve blocks: femoral (adductor canal) Procedure successful: Yes Patient tolerated procedure: well and no complications Complications: none Additional comments: Adductor canal nerve block performed for post-op pain control at surgeon request. Patient was positioned with IV, O2, monitors and rescue meds available. Prepped and timeout performed. Target identified with continuous ultrasound guidance. 20mL of bupivicaine 0.25% was injected perineurally with intermittent aspiration and injection. No blood, no paresthesias, no acute complications. Ultrasound pic attained.
--- NOTE | 2021-06-25 15:40 | SUR.PREOP ---
preop- block left knee preformed by Dr Ramos. time out prior to block done. Patient wide awake and alert. tolerated procedure well. 1540-To OR with RN.
[2021-06-25] MEDS: CEFAZOLIN IV (15:58)
[2021-06-25] MEDS: TRANEXAMIC ACID 1,000 MG VIAL 1000 MG INJ ×2 (16:10→17:03)
--- NOTE | 2021-06-25 16:20 | SUR.OPER ---
Supine on padded OR bed. Pillow under head, arms secured on padded armboards <90 degree abduction. Safety belt across torso. Non-operative leg secured with tape over blanket over lower leg. Operative leg secured in DeMayo/Kashif/Nathe positioner. Foam padded brace at thigh of operative leg.
[2021-06-25] MEDS: BUPIVACAINE LIPOSOME 266 MG/20 ML VIAL INJ (16:25)
[2021-06-25] MEDS: BUPIVACAINE 0.25% (PF) 60 ML, EPINEPHrine 0.3 MG INJ (16:25)
[2021-06-25] MEDS: MORPHINE 4 MG/ML INJ INJ (16:26)
--- NOTE | 2021-06-25 18:19 | SUR.PHASEI ---
Patient transferred in bed with belongings to room 223 by this RN. SBAR report to Ceci [place]. Pt alert, oriented, denying pain & nausea. Warm blanket given, bed in low position. Call light in reach.
[2021-06-25] MEDS: LACTATED RINGERS 1,000 ML 100 ML IV (20:03)
[2021-06-25] MEDS: ASPIRIN EC 81 MG TABLET PO (20:44)
[2021-06-25] MEDS: ACETAMINOPHEN 325 MG TABLET 650 MG PO (20:45)
[2021-06-25] MEDS: ATORVASTATIN 20 MG TABLET 10 MG PO (20:45)
[2021-06-25] MEDS: IBUPROFEN 400 MG TABLET PO (20:45)
[2021-06-25] MEDS: DOCUSATE 100 MG CAPSULE PO (20:45)
[2021-06-26] MEDS: IBUPROFEN 400 MG TABLET PO ×4 (01:19→12:46)
[2021-06-26 05:52] VITALS: BP 157/81; PULSE 79; RESP 18; TEMP 36.6; O2SAT 94
[2021-06-26 05:53] LABS: Hematocrit 42.4 % (41-53); Hemoglobin 14.4 g/dL (13.5-17.5)
[2021-06-26] MEDS: LACTATED RINGERS 1,000 ML 100 ML IV (05:56)
[2021-06-26 07:20] VITALS: BP 133/79; PULSE 62; RESP 16; TEMP 36.7; O2SAT 96
--- NOTE | 2021-06-26 07:46 | P.DS_ITS ---
History of Present Illness History of Present Illness Date Patient Seen: 06/26/21 Time Patient Seen: 07:46 Chief complaint: Left Total Knee Arthroplasty *OPB* Narrative: The history and physical are contained in the chart previously completed note. Please refer to that note for this information. Discharge Providers Provider Date of admission: June 25, 2021 Discharge Date: 06/26/21 Primary care physician: Alex Bedolla MD Consults: 06/25/21 18:03 Consult to Discharge Planning Routine Comment: Consult to Physical Therapy Evaluate & Treat Comment: Physician Instructions: postop TKA protocol Discharge provider: Han Urena MD Summary Hospital Course Discharge Diagnosis: Left knee osteoarthritis Hospital Course: The patient was admitted to the hospital and taken directly to the operating room June 25, 2021. He underwent a left total knee replacement without complications. On postoperative day 1 he was comfortable and ready for discharge. Status at Discharge Cognitive/behavioral status at discharge: oriented Functional status at discharge: uses cane/walker Overall status at discharge: patient is progressing back to baseline Time Spent with Patient Time spent: Less than 30 minutes Exam Vital Signs (past 8 hours): - 06/26/21 05:52 Temperature 98 F Pulse Rate 79 Respiratory Rate 18 Blood Pressure 157/81 H Pulse Oximetry 94 Oxygen Delivery Method Room Air Oxygen Flow Rate 0 Narrative Exam Narrative: Left knee is dressed with no drainage on the bandage. Calf is soft. Light touch and motion are intact the left lower extremity. Objective Labs Result Diagrams: 06/26/21 05:35 Labs: Laboratory Results - last 24 hr 06/26/21 05:35 Hgb 14.4 Hct 42.4 PFSH Medical History (Updated 04/13/18 @ 13:39 by Cassandra Pires RN) Bilateral pulmonary embolism HTN (hypertension) Hyperlipidemia Pneumonia Psoriasis Surgical History (Updated 06/18/21 @ 14:30 by Cassandra Pires RN) H/O vasectomy History of arthroplasty of right knee (04/28/18) History of arthroscopy of both knees History of hernia surgery (03/1999) History of total replacement of right shoulder joint (05/2018) Social History household members: spouse Smoking Status: Former smoker alcohol intake: current Discharge Assessment & Plan Assessment and Plan Assessment: Stable postoperative day 1 status post left total knee replacement. Plan of Treatment: Discharged home. Follow up in my office in 2 weeks. Prescriptions for o xycodone have been called into his pharmacy. He has been instructed in the use of Tylenol and ibuprofen for postoperative pain control and the use of low-dose aspirin for DVT prophylaxis. Discharge Plan Discharge Plan Patient Disposition: Home Discharge orders & Medications Discharge Orders: Discharge (Order); Ordered 06/26/21 Ordered By: Han Urena Prescriptions: New acetaminophen 325 mg Tablet 650 mg PO TID 30 Days Qty: 180 0RF aspirin 81 mg Tablet,Delayed Release (Dr/Ec) 81 mg PO BID 42 Days Qty: 84 0RF ibuprofen 400 mg Tablet 400 mg PO Q4HR 30 Days 0RF oxycodone 5 mg Tablet 5 mg PO Q4H PRN (Reason: Pain, Moderate (4-6)) Qty: 40 0RF Continued atorvastatin [Lipitor] 10 MG tablet 10 mg PO QAM Qty: 0 0RF multivitamin [Multiple Vitamins] 1 EACH tablet 1 tab PO QDAY Qty: 0 0RF cholecalciferol (vitamin D3) [Vitamin D3] 1,000 UNIT tablet 1,000 unit PO QDAY Qty: 0 0RF losartan-hydrochlorothiazide 100-12.5 mg Tablet 1 tab PO DAILY 0RF Discontinued aspirin 81 mg Capsule 81 mg PO DAILY 0RF Follow up/Referrals: Alex Beodlla MD [Primary Care Provider] - Han Urena MD [Physician] - 2 Weeks Diet/Activity/Treatments Diet: Diet as Tolerated and Regular Activity: You may bear weight as tolerated on your left leg. Cold/Heat Therapy: You may apply ice for 15 minutes every hour as needed for pain control to the left knee. Skin/Wound/Dressing Care Report to your healthcare provider any signs of infection, such as:: chills, fever, night sweats, increased pain, unusual drainage and unusual redness Dressing: You may remove the Khanh wrap 3 days after surgery and shower normally with the deeper dressing in place. Leave the deeper dressing in place until your postoperative follow-up. If it becomes saturated with either water or blood, please call the office to have it evaluated. Visit Report/Discharge Packet Instructions: DI for Knee Replacement Stand Alone Forms: Surgery Discharge Discharge Data Primary Care Provider: Alex Bedolla Attending Provider: Han Urena Quality VTE Deep Vein Thrombosis/Pulmonary Embolism Present on Admission: No
[2021-06-26 09:00] VITALS: BP 157/81
[2021-06-26] MEDS: DOCUSATE 100 MG CAPSULE PO (09:00)
[2021-06-26] MEDS: LOSARTAN 50 MG TABLET 100 MG PO (09:00)
[2021-06-26] MEDS: CHOLECALCIFEROL (VITAMIN D3) 1,000 UNIT TABLET 1000 UNIT PO (09:01)
[2021-06-26] MEDS: MULTIVITAMIN 1 TABLET 1 TAB PO (09:01)
[2021-06-26] MEDS: ASPIRIN EC 81 MG TABLET PO (09:01)
[2021-06-26] MEDS: hydroCHLOROthiazide 25 MG TABLET 12.5 MG PO (09:01)
[2021-06-26] MEDS: ACETAMINOPHEN 325 MG TABLET 650 MG PO (09:02)
[2021-06-26 11:00] VITALS: BP 144/70; PULSE 86; RESP 16; TEMP 36.9; O2SAT 95
--- NOTE | 2021-06-26 12:27 | CM.DANOTE ---
DCP/Assessment: Reviewed chart. Patient is a 70yr old male admitted to [facility] for elective left TKA peformed on 06-25-[address] Urena. PCP listed is Dr. Bedolla. Primary payor is 1)Medicare 2)[facility]. Met with patient and spouse this AM explained CM/SW role. Patient alert, oriented, and resting in recliner at time of visit. Patient reports that he hopes to d/c home today. Therapy evaluation pending at time of MILITARY EDUCATION COORDINATOR visit. Patient plans to do outpatient therapy which he has scheduled to begin next week. Patient reports that he has all needed DME. At this time anticipate patient will d/c home today without any d/c planning needs. P: Home. [facility] Discharge Planning/Care Management CM Discharge Assessment Start: 06/26/21 12:24 Freq: Status: Active Protocol: Document 06/26/21 12:25 KJS (Rec: 06/26/21 12:27 KJS [id number]) Discharge Planning Assessment Assigned Truck Shop Mechanic Janki Frazier MILITARY EDUCATION COORDINATOR Contact Information Mago Rojas (spouse) ph# Advance Directives? Yes Advance Directives on File Yes History Provided By Patient,Significant Other, Medical Record Prior Living Arrangements House Household Members spouse Type of transporation used prior to Drives own vehicle admit Independent with ADL's Yes Is patient alert and oriented? Yes Needs Assistance With Meal Prep,Home Chores / Shopping Caregiver for Another No DME Already Rented / Owned FWW / Walker,Cane Patient/Family Preference OP PT Therapy Barriers to Discharge No Discharge Plan Home Transportation Arrangement Family to provide transport. Referrals Initiated None needed Whiteboard Updated in Patient Room with Yes name and ext. # of Truck Shop Mechanic Review Status In Process Next Review Type Continued Stay Review Pre-Anesthesia Assessment Start: 06/18/21 13:54 Freq: Status: Complete Protocol: Document 06/18/21 13:54 CAB (Rec: 06/18/21 14:31 CAB [id number]) Pre-Anesthesia Assessment Preferred Name Juan C Patient Information Reviewed Via Phone Assessment Assessment Completed With Patient Diagnostic Results BMP/CMP,CBC,EKG Comment Labs/EKG @[facility] 05/31/21, COVID screen @ [facility] 06/22/21 Primary Care Provider Alex Bedolla Seen Specialist in Last 12 Months Yes Specialist Seen Orthopedist Primary Language Lao Preferred Language Lao Ergonomics Engineer Required No Height 175.26 cm Weight 118.388 kg Body Mass Index (BMI) 38.5 Hearing Ability Normal Visual Assist Glasses Dentition Type Teeth, Natural Present Barriers to Learning None Other Aids No Hx Anesthesia Reactions No Hx Family Anesthesia Reaction No Hx Malignant Hyperthermia No Hx Blood Transfusions No Anesthesia Review Requested No Innersole Fitter No alcohol intake current alcohol intake frequency a few times a week Smoking Status Former smoker Smoking packs per day 1.5 how long ago did patient quit smoking Quit 1988 Substance Use Type does not use Pain Present Pain Reported Musculoskeletal Symptoms Difficulty Walking,Joint Pain History of Falling (Recent or History of No ) Patient is completely paralyzed or No completely immobile Mental Status Oriented to own ability Is patient on oxygen? No Does patient have MEAD/SOB No Hx Sleep Apnea No Suspected Sleep Apnea No Currently Taking a Beta Cornelius No Can You Climb a Flight of Stairs Without Yes SOB Hx Chest Pain No Hx SOB No Hx Syncope or Dizziness No Anti-Coagulant Therapy No Has a Topographical Field Assistant No Cardiac Testing No Hx Pacemaker/ICD No Pacemaker Rep Required? No Cardiac Clearance Received Not Applicable Diet Type At Home Regular dysphagia No Urinary Catheter Present No Hx Urinary Self Catheterization No Diabetes No Hx Drug Resistant Organism No Presence of External or Internal Medical Yes: Right knee/shoulder Devices prosthesis, tooth implant Have you had any close contact with No someone diagnosed with COVID-19? Received a COVID vaccine? Yes Received all doses? Yes Marital Status Lives With spouse Prior Living Arrangements House Patient Discharge Plan Description Return Home Feels Safe in Current Environment Yes Been Physically Hurt or Threatened By a No Person in Current Environment Do you have thoughts of harming yourself None or others? Are you currently considering suicide? No Do you have a plan to hurt yourself or No Plan others? Do You Have Any Spiritual Beliefs That No May Affect Your HC Choices? Do You Have Any Cultural Practices That No May Affect Your HC Choices? Comment Yazidism Who Can We Speak to About Patient's Care Family, friends Identifying Code for Release of Patient Declines to issue Information Health Care Proxy/Next of Kin Keaton () Health Care Proxy Phone Number H: [phone] Cell: Emergency Contact Name Mago () Emergency Contact Phone Number H: [phone] Cell: Advance Directives? Yes: DPOA/Healthcare Directive Advance Directives on File Yes Power of Property Developer Yes Power of Property Developer Name Mago () Power of Property Developer Phone Number H: [phone] Cell: PAC Instructions Durable medical equipment, Medications to take/avoid, Nasal antibiotic,No ETOH/ petroleum product on skin DOS, NPO,Pre-surgical wash,Sensory aids,Sturdy shoes/comfortable clothes,Do not bring valuables and remove jewelry
--- NOTE | 2021-06-26 13:40 | PC.NURSE ---
Discharge note: pt discharged home with all belongings and driving. Reviewed discharge paperwork with patient and , including discharge instructions for opioid use, and total knee replacement. Verbally reviewed signs/symptoms of infection, as well as blood clot symptoms in leg and signs/symptoms of a stroke. Reviewed medications to continue. All questions answered. Kiel MORENO wheeled pt to car in wheelchair. Left acute care in stable condition.
== END 2021-06-26 13:43 | disposition home or self-care (01) ==
LOC: OR 12:41 → AC 12:42
PROVIDERS: PCP Family Medicine; Referring Provider Orthopaedic Surgery; Visit Provider Orthopaedic Surgery
PROC: 0SRD0JZ Replacement of Left Knee Joint with Synthetic Substitute, Open Approach (ICD-10-PCS; CPT 27447; principal; 2021-06-25 15:00)
DX: M17.12 Unilateral primary osteoarthritis, left knee (principal); I10 Essential (primary) hypertension; E78.00 Pure hypercholesterolemia, unspecified; F32.9 Major depressive disorder, single episode, unspecified; E66.9 Obesity, unspecified; Z86.711 Personal history of pulmonary embolism; Z68.38 Body mass index [BMI] 38.0-38.9, adult
CPT/HCPCS: 27447; 64450; 73560; 85014; 85018; 97110; 97162; 97530; C1776; C9290; J0171; J0690; J1100; J2270; J2704